=== PATIENT | male | born 1970 | race Caucasian/White ===

== ENCOUNTER 2017-11-01 22:41 | Emergency (ER) | payer SELFPAY ==
[2017-11-01 22:50] VITALS: BP 115/69; PULSE 75; RESP 16; TEMP 97.7; O2SAT 98
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
== END 2017-11-02 00:24 | disposition home or self-care (01) ==
LOC: C.ER 22:41
DX: M25.552 Pain in left hip (principal)